=== PATIENT | female | born 1970 | race Two or more races ===

== ENCOUNTER 2019-10-15 12:09 | Emergency (ER) | payer OTHER ==
[~2019-10-15] VITALS: Ht 160 cm; Wt 59.4 kg
== END 2019-10-15 13:34 | disposition home or self-care (01) ==
LOC: ER 12:09
DX: S60.211A Contusion of right wrist, initial encounter (principal); S80.11XA Contusion of right lower leg, initial encounter; M12.531 Traumatic arthropathy, right wrist; W18.39XA Other fall on same level, initial encounter; Y93.89 Activity, other specified; Y92.018 Other place in single-family (private) house as the place of occurrence of the external cause; Y99.8 Other external cause status

== ENCOUNTER 2022-01-06 15:13 | Inpatient (IN) | payer OTHER ==
[~2022-01-06] VITALS: Ht 160 cm; Wt 1297.3 kg
== END 2022-01-08 18:40 | disposition home or self-care (01) | DRG 812 ==
LOC: ER 15:13 → SURG 01-07 03:37
PROVIDERS: ADMIT Internal Medicine; ATTEND Internal Medicine
PROC: B020ZZZ Computerized Tomography (CT Scan) of Brain (ICD-10-PCS; 2022-01-06)
PROC: 30233N1 Transfusion of Nonautologous Red Blood Cells into Peripheral Vein, Percutaneous Approach (ICD-10-PCS; principal; 2022-01-07)
PROC: BW21ZZZ Computerized Tomography (CT Scan) of Abdomen and Pelvis (ICD-10-PCS; 2022-01-07)
PROC: BU4CZZZ Ultrasonography of Uterus and Ovaries (ICD-10-PCS; 2022-01-08)
DX: D50.0 Iron deficiency anemia secondary to blood loss (chronic) (principal); Z20.822 Contact with and (suspected) exposure to COVID-19